=== PATIENT | female | born 1955 | race Native Hawaiian/Other Pacific Islander ===

== ENCOUNTER 2018-02-15 12:39 | Emergency (ER) | payer OTHER ==
[~2018-02-15] VITALS: Ht 167.6 cm; Wt 127.0 kg
[2018-02-15 12:45] VITALS: TEMP 97.7
[2018-02-15 16:10] VITALS: BP 181/89
== END 2018-02-15 16:10 | disposition home or self-care (01) ==
LOC: ED 12:39
DX: S16.1XXA Strain of muscle, fascia and tendon at neck level, initial encounter (principal); S80.02XA Contusion of left knee, initial encounter; S40.012A Contusion of left shoulder, initial encounter
CPT/HCPCS: 96372; 99283; J1885

== ENCOUNTER 2018-07-25 21:00 | Emergency (ER) | payer OTHER ==
[~2018-07-25] VITALS: Ht 167.6 cm; Wt 128.8 kg
[2018-07-25 22:15] LABS: PLATELET COUNT 197 K/uL (152-353)
[2018-07-25 22:19] LABS: POTASSIUM 4.2 mmol/L (3.6-5.2); SODIUM 142 mmol/L (136-145)
[2018-07-25 23:30] VITALS: BP 154/68; TEMP 98.3
== END 2018-07-25 23:35 | disposition home or self-care (01) ==
LOC: ED 21:00
PROVIDERS: Emergency Medicine
DX: J44.9 Chronic obstructive pulmonary disease, unspecified (principal)
CPT/HCPCS: 36415; 80053; 82550; 82553; 84484; 85027; 93005; 94664; 96372; 99283; J2930

== ENCOUNTER 2018-09-15 20:50 | Outpatient (CLI) | payer OTHER | END 2018-09-15 20:54 | disposition short-term general hospital (02) | LOC: AMB 20:50 | DX: M25.532 Pain in left wrist (principal); M25.562 Pain in left knee; V89.0XXA Person injured in unspecified motor-vehicle accident, nontraffic, initial encounter; Y92.89 Other specified places as the place of occurrence of the external cause | CPT/HCPCS: A0425; A0427 ==

== ENCOUNTER 2018-09-15 21:02 | Emergency (ER) | payer OTHER ==
[~2018-09-15] VITALS: Ht 162.6 cm; Wt 127.0 kg
[2018-09-15 23:24] VITALS: BP 156/95; TEMP 98.5
== END 2018-09-15 23:34 | disposition home or self-care (01) ==
LOC: ED 21:02
DX: M25.532 Pain in left wrist (principal); M25.562 Pain in left knee; M19.032 Primary osteoarthritis, left wrist; M17.12 Unilateral primary osteoarthritis, left knee; V53.5XXA Driver of pick-up truck or van injured in collision with car, pick-up truck or van in traffic accident, initial encounter
CPT/HCPCS: 99283

== ENCOUNTER 2018-12-08 21:35 | Emergency (ER) | payer OTHER ==
[~2018-12-08] VITALS: Ht 162.6 cm; Wt 127.0 kg
[2018-12-08] MEDS ORDERED: HYDR10TA47 PO (22:10)
[2018-12-08] MEDS ORDERED: AMLODIPINE BESYLATE PO (22:10)
[2018-12-08] MEDS ORDERED: REQUIP0.25 MG PO (22:10)
[2018-12-08] MEDS ORDERED: METOPROLOL25 M1 PO (22:11)
[2018-12-09 00:15] VITALS: BP 152/79; TEMP 98.1
== END 2018-12-09 00:20 | disposition home or self-care (01) ==
LOC: ED 21:35
DX: G62.89 Other specified polyneuropathies (principal)
CPT/HCPCS: 96372; 99283; J1885; J2930

== ENCOUNTER 2019-09-21 20:37 | Emergency (ER) | payer OTHER ==
[~2019-09-21] VITALS: Ht 162.6 cm; Wt 129.3 kg
[~2019-09-21 20:37] MED LIST: AMLODIPINE BESYLATE PO; HYDR10TA47 PO; METOPROLOL25 M1 PO; REQUIP0.25 MG PO
[2019-09-21 22:05] VITALS: BP 134/81; TEMP 98.3
== END 2019-09-21 22:05 | disposition home or self-care (01) ==
LOC: ED 20:37
DX: S66.812A Strain of other specified muscles, fascia and tendons at wrist and hand level, left hand, initial encounter (principal); V09.00XA Pedestrian injured in nontraffic accident involving unspecified motor vehicles, initial encounter; Y92.89 Other specified places as the place of occurrence of the external cause
CPT/HCPCS: 90472; 90715; 99283

== ENCOUNTER 2020-01-15 14:53 | Emergency (ER) | payer OTHER ==
[~2020-01-15] VITALS: Ht 162.6 cm; Wt 120.2 kg
[2020-01-15 16:15] LABS: PLATELET COUNT 162 K/uL (152-353)
[2020-01-15 16:26] LABS: POTASSIUM 4.5 mmol/L (3.6-5.2)
[2020-01-15 19:20] VITALS: BP 154/84; TEMP 98.1
== END 2020-01-15 19:29 | disposition home or self-care (01) ==
LOC: ED 14:53
PROVIDERS: Emergency Medicine
DX: K62.5 Hemorrhage of anus and rectum (principal); R10.84 Generalized abdominal pain
CPT/HCPCS: 80053; 81000; 82150; 82272; 83690; 85027; 99283; Q9963

== ENCOUNTER 2020-04-18 18:07 | Emergency (ER) | payer OTHER ==
[~2020-04-18] VITALS: Ht 167.6 cm; Wt 138.8 kg
[2020-04-18 19:00] LABS: PLATELET COUNT 148 K/uL (152-353)
[2020-04-18 19:02] LABS: POTASSIUM 4.7 mmol/L (3.6-5.2)
[2020-04-18 19:57] VITALS: BP 153/86; TEMP 99.3
== END 2020-04-18 19:55 | disposition home or self-care (01) ==
LOC: ED 18:07
PROVIDERS: Family Medicine
DX: M54.5 Low back pain (principal); M62.830 Muscle spasm of back
CPT/HCPCS: 80053; 81000; 85027; 96374; 99284; J1885

== ENCOUNTER 2021-08-16 11:20 | Outpatient (CLI) | payer OTHER | END 2021-08-16 19:11 | disposition home or self-care (01) | LOC: RAD 11:20 | PROVIDERS: ATTEND Obstetrics & Gynecology Gynecology | DX: S89.82XA Other specified injuries of left lower leg, initial encounter (principal); Y92.9 Unspecified place or not applicable ==

== ENCOUNTER 2021-09-28 11:31 | Outpatient (CLI) | payer OTHER | END 2021-09-28 19:22 | disposition home or self-care (01) | LOC: RAD 11:31 | PROVIDERS: ATTEND Obstetrics & Gynecology Gynecology | DX: G89.29 Other chronic pain (principal); M25.512 Pain in left shoulder; M25.511 Pain in right shoulder ==

== ENCOUNTER 2022-03-30 20:56 | Emergency (ER) | payer OTHER ==
[~2022-03-30] VITALS: Ht 167.6 cm; Wt 136.1 kg
[2022-03-30 21:18] VITALS: TEMP 98.8
[2022-03-30 22:46] LABS: PLATELET COUNT 164 K/uL (152-353)
[2022-03-30 23:05] LABS: POTASSIUM 4.1 mmol/L (3.6-5.2)
[2022-03-31 00:30] VITALS: BP 143/83
== END 2022-03-31 00:30 | disposition home or self-care (01) ==
LOC: ED 20:56
PROVIDERS: Family Medicine
DX: K52.89 Other specified noninfective gastroenteritis and colitis (principal); E27.8 Other specified disorders of adrenal gland; R06.02 Shortness of breath
CPT/HCPCS: 80053; 81002; 82150; 82550; 83690; 83880; 84484; 85027; 94664; 96360; 99284; J1940; J2405